=== PATIENT | female | born 2000 | race Asian ===

== ENCOUNTER 2022-02-15 06:35 | Emergency (ER) | payer MEDICAID ==
[~2022-02-15] VITALS: Ht 157.5 cm; Wt 67.7 kg
[2022-02-15] MEDS ORDERED: KETOROLAC TROMETHAMINE 30 MG/ML VIAL IM ONE (06:45)
[2022-02-15] MEDS ORDERED: OxyCODONE HCL 5 MG IR TABLET PO ONE (06:45)
[2022-02-15 08:57] VITALS: BP 132/85
== END 2022-02-15 11:24 | disposition home or self-care (01) ==
LOC: EMS 06:36
DX: S52.501A Unspecified fracture of the lower end of right radius, initial encounter for closed fracture (principal); W01.0XXA Fall on same level from slipping, tripping and stumbling without subsequent striking against object, initial encounter; Y93.89 Activity, other specified; Y92.89 Other specified places as the place of occurrence of the external cause; Y99.8 Other external cause status
CPT/HCPCS: 99284; 73110; 73130; 29125; 96372; J1885